=== PATIENT | female | born 1950 | race Caucasian/White ===

== ENCOUNTER 2018-04-04 07:00 | Day surgery (SDC) | payer MEDICARE, OTHER ==
[~2018-04-04] VITALS: Ht 157.5 cm; Wt 70.3 kg
[~2018-04-04 07:00] MED LIST: LOSARTAN POTAS100 MG PO; ROSUVASTATIN CAL5 MG PO
--- NOTE | 2018-04-04 10:57 | NUR ---
04/04/18 1057 Allen,[place] 1049 PT ARRIVED TO PACU ON RA AND DROWSY, PT DENIES PAIN AND NAUSEA. PT DOES REPORT "PINS AND NEEDLES" FEELING IN HER FOOT. RESP EVEN AND UNLABORED. 1056 TALKING TO PT ABOUT FEELING IN FOOT. HOB INCREASED TO PT DENIES ANY OTHER CONCERNS AT THIS TIME.
--- NOTE | 2018-04-04 14:28 | NUR ---
PT ALERT, ORIENTED AND SUPPORTED WITH HER SHENG AT . PT SEEMED PREPARED, HAD FEW QUESTIONS AND THANKED ME FOR COMING BY. EXTENDED A BLESSING WILL FOLLOW NEEDED
--- NOTE | 2018-04-18 09:25 | OR ---
[facility] [address], [place] [address] Signed DATE OF OPERATION: 04/04/2018 SURGEON: Zaki Jiang DPM PREOPERATIVE DIAGNOSIS: Hallux valgus with bunion deformity, left foot. POSTOPERATIVE DIAGNOSIS: Hallux valgus with bunion deformity, left foot. ANESTHESIA: IV general with local block left foot. MANAGER OPERATIONS AND PROCUREMENT: Tsering High. SPECIMEN TO PATHOLOGY: None. PROCEDURE PERFORMED: Bunionectomy with 1st metatarsal osteotomy, left foot. DESCRIPTION OF PROCEDURE: The patient was brought to the operating room and placed on the table in the supine position. Anesthesia Department administered IV sedation, after which a local block was given to the left foot using 10 mL 1:1 mixture of 0.5% ropivacaine plain and 2% lidocaine plain. The left leg and foot were then prepped and draped in the usual sterile manner and an Esmarch was used for hemostasis. Attention was initially directed to the dorsal/medial aspect of the left 1st metatarsophalangeal joint where a linear longitudinal incision was made centered over the joint and approximately 6 cm in length. The incision was initially full-thickness through the dermis then deepened through subcutaneous tissue using careful dissection and cautery as necessary for hemostasis. Once at the level of deep fascia and joint capsule, the incision was deepened to bone reflecting soft tissues to expose the medial aspect of the 1st metatarsal head. The bony prominence to the medial 1st metatarsal head was resected at this time using power instrumentation, removing approximately 2 mm of bone. Attention was then directed to the 1st intermetatarsal space where a lateral release was performed. This was noted to provide significant improvement in the hallux valgus position. At this time, attention was redirected to the medial 1st metatarsal Electronically Signed By: ZAKI JIANG DPM 04/18/18 0925 PATIENT NAME: JASS BHATT OPERATIVE REPORT DATE OF : 52 REPORT #: [id number] PHYSICIAN: ZAKI JIANG DPM PCP: NATHAN ARREDONDO MD REPORT IS CONFIDENTIAL AND NOT TO BE RELEASED WITHOUT AUTHORIZATION [facility] [address], [place] [address] Signed head where a long dorsal arm chevron type osteotomy was made from medial to lateral through the 1st metatarsal head. The 1st metatarsal head was then shifted laterally on the metatarsal, 7-8 mm of lateral transposition. Then impacted on the metatarsal and secured with K-wires. At this time, the alignment and position to the 1st metatarsal was checked with intraoperative imaging and noted to provide adequate correction and alignment. At this time, the osteotomy was then fixated using two cannulated screws, 3.0 x 14 mm each. With the screws in place, the alignment and position, both of the fixation as well as the bone was checked again with intraoperative fluoroscopy and deemed adequate. At this time, power instrumentation was used to resect the remaining shelf of bone medially and to smooth the bone to this area. The surgical site was then irrigated with copious amounts of normal saline. The position to the toe and correction achieved deemed adequate. The deep soft tissues were then closed using 3-0 Vicryl. Subcutaneous tissues closed using 4-0 Vicryl and skin closed using 5-0 nylon monofilament suture. Dressings then applied consisting of Adaptic, Betadine-soaked gauze, dry gauze, Kerlix fluffs, Flexicon, and Coban for mild compression as well as to splint the position to the hallux. Prior to placement of the dressings, a postoperative injection was given using 10 cc of a 9:1 mixture, 0.5% ropivacaine plain and dexamethasone phosphate. INTRAOPERATIVE COMPLICATIONS: None. ESTIMATED BLOOD LOSS: Less than 5 mL. The patient tolerated the procedure and anesthesia well and left the operating room with vital signs stable and vascular status intact to the left foot as evidenced by hyperemia with removal of the Esmarch. TANISHA Greco/MODL /[id number] Electronically Signed By: ZAKI JIANG DPM 04/18/18 0925 PATIENT NAME: JASS BHATT OPERATIVE REPORT DATE OF : 52 REPORT #: [id number] PHYSICIAN: ZAKI JIANG DPM PCP: NATHAN ARREDONDO MD REPORT IS CONFIDENTIAL AND NOT TO BE RELEASED WITHOUT AUTHORIZATION [address] [place] [address] Signed Copies: ~ Electronically Signed By: ZAKI JIANG DPM 04/18/18 0925 PATIENT NAME: JASS BHATT OPERATIVE REPORT DATE OF : 52 REPORT #: [id number] PHYSICIAN: ZAKI JIANG DPM PCP: NATHAN ARREDONDO MD REPORT IS CONFIDENTIAL AND NOT TO BE RELEASED WITHOUT AUTHORIZATION
== END 2018-04-04 11:36 | disposition home or self-care (01) ==
LOC: DS 07:00 → OPS 07:00 → DS 10:15 → OPS 11:36
PROVIDERS: Podiatrist Foot Surgery
PROC: 0QSP04Z Reposition Left Metatarsal with Internal Fixation Device, Open Approach (ICD-10-PCS; principal; 2018-04-04 10:15)
DX: M20.12 Hallux valgus (acquired), left foot (principal); M21.612 Bunion of left foot; Z79.899 Other long term (current) drug therapy
CPT/HCPCS: 01480; 73620; 73630; C1713; J0690; J1100; J1885; J2250; J2405; J2704; J2795; J3010; J7120